=== PATIENT | female | born 1980 | race Caucasian/White ===

== ENCOUNTER → 2023-09-03 07:46 | Outpatient (REF) | payer OTHER, SELFPAY | LOC: HWRAD 07:46 | PROVIDERS: ATTENDING PHYSICIAN Obstetrics & Gynecology Gynecology; FAMILY PHYSICIAN Family Medicine | DX: N83.291 Other ovarian cyst, right side (principal) | CPT/HCPCS: 76830; 76856 ==

== ENCOUNTER 2024-03-18 18:15 | Emergency (ER) | payer OTHER, SELFPAY ==
[2024-03-18 18:29] VITALS: BP 142/87
--- NOTE | 2024-03-18 19:09 | ED.SKININJ ---
HPI-Injury
General
Chief Complaint: Skin Surface Trauma
Source: patient
Exam Limitations: none
Time Seen by Provider: 03/18/24 18:34
Nursing documentation reviewed up to this point in time: agreed with
History of Present Illness-Injury
Is this injury a work related problem?: No
Is pt an associate of [facility]/[place]?: No
Initial Injury comments:
Accidentally cut self with knife. Sustained lac to left index finger. Injury occurred just BEHAVIORAL HEALTH TECH
Past History
Past History
ED Past Medical History: None
Review of Systems
Review of Systems
Allergies reviewed?: Yes
All Other Systems: ROS reviewed and negative except as documented in HPI and ROS
Constitutional: Reports no symptoms
Musculoskeletal: Reports no symptoms
Skin: Reports other (laceration to left index finger)
Neurological: Reports no symptoms
Psychiatric: Reports no symptoms
Skin Exam
Laceration
Left Second Finger:
Length in cm: 1
Orientation: horizontal
Type of Laceration: simple
Any active bleeding?: no active bleeding
Distal skin color and temperature: normal-warm & good color
Normal distal neurovascular exam: Yes
Range of motion: full
Phy Exam
General Physical Exam
General Presentation: well appearing and no apparent distress
General age: appears stated age
General Skin: warm and dry
General Habitus: normal
General Mental: alert
Musculoskeletal Exam
Musculoskeletal Exam: full ROM and neuro vasc intact
Skin Exam
Skin Exam: normal color, warm/dry and no rash
Psychiatric Exam
Psychiatric Exam: normal mood/affect
Course
Orders/Labs/Results
Orders:
Orders
03/18/24 19:08
Tetanus/Diphth/Acelpertussis [Adacel] 0.5 ml IM .ONCE ONE
Vital Signs
Initial and Last Documented VS:
Initial Vital Signs
Temp Pulse Resp BP Pulse Ox
98.7 F 95 16 142/87 97
03/18/24 18:29 03/18/24 18:29 03/18/24 18:29 03/18/24 18:29 03/18/24 18:29
Last Documented Vital Signs
Temp Pulse Resp BP Pulse Ox
98.7 F 95 16 142/87 97
03/18/24 18:29 03/18/24 18:29 03/18/24 18:29 03/18/24 18:29 03/18/24 18:29
Procedures
Laceration Closure
Left Second Finger:
Status of Wound: clean
Description of Wound Edges: sharp
Preparation: cleaned with saline and cleaned with Betadine
Revision/Debridement: routine- no revision
Wound exploration: no tendon involvement
Type of Closure: Dermabond-skin glue
*Critical Care Note
Total Time (30-74mins, 75-104mins- exclusive of procedures): Not Applicable
ED Attending Note
-
Portions of this chart may have been created with voice recognition software.� Occasional wrong word or��sound alike� substitutions may have occurred due to the inherent limitations of voice recognition software.
Discharge Plan
Departure
Patient Disposition: Home (Routine Discharge)
Date of Disposition: 03/18/24
Time of Disposition: 19:12
Patient with high blood pressure during this ER visit?: No
Condition: Good
Covid-19: Not Applicable
Discharge Problem:
Finger laceration
Instructions: Laceration Repair With Glue (DC)
Referrals:
Orin Kruger, [Family Provider] -
Interventions
Interventions:
*Risk Screen - Suicide Last Done: 03/18/24 18:29
*General Assessment Last Done: 03/18/24 18:29
*Neglect/Abuse Screening Last Done: 03/18/24 18:29
*ED COVID-19 Vaccine History Last Done: 03/18/24 18:29
Discharge Date and Time
Print Language: GREEK
[2024-03-18] MEDS: ADACEL 0.5 ML IM (19:20)
== END 2024-03-18 19:25 | disposition home or self-care (01) ==
LOC: EMR 18:15
PROVIDERS: EMERGENCY PHYSICIAN Emergency Medicine; FAMILY PHYSICIAN Family Medicine
DX: S61.211A Laceration without foreign body of left index finger without damage to nail, initial encounter (principal); W26.0XXA Contact with knife, initial encounter; Z23 Encounter for immunization
CPT/HCPCS: 99282; 12001; 90471; 90715

== ENCOUNTER 2024-03-20 08:57 | Emergency (ER) | payer OTHER, SELFPAY ==
[2024-03-20 09:04] VITALS: BP 133/94
--- NOTE | 2024-03-20 09:36 | ED.GENMED ---
History of Present Illness
General
Chief Complaint: Wound Check/Suture Removal
Time Seen by Provider: 03/20/24 09:18
History of Present Illness
History of Present Illness:
43-year-old female department for a wound check. She had a small laceration to the left index finger sustained 2 days ago, was treated in this emergency department with Steri-Strips and glue. She is concerned because a portion of the Steri-Strip
seems to be falling off and there is slight drainage from the wound. No fever
Past History
Past History
ED Past Medical History: None
Review of Systems
Review of Systems
Allergies reviewed?: Yes
All Other Systems: ROS reviewed and negative except as documented in HPI and ROS
Phy Exam
Physical Exam
Physical Exam:
GEN: Well appearing, NAD, WDWN
HEENT: Oral mucosa moist, no scleral icterus
Cardiac: Regular rate
Lung: No respiratory distress, no tachypnea
MSK: No gross deformity or injuries
Skin: Good color, no pallor or jaundice. Steri-Strips intact, minor avulsing of 2 of the Steri-Strips with exposed well-approximated wound
Neuro: AO x3, moves all extremities freely
Psych: Calm, cooperative
Course
Vital Signs
Initial and Last Documented VS:
Initial Vital Signs
Temp Pulse Resp BP Pulse Ox
98.0 F 82 16 133/94 98
03/20/24 09:04 03/20/24 09:04 03/20/24 09:04 03/20/24 09:04 03/20/24 09:04
Last Documented Vital Signs
Temp Pulse Resp BP Pulse Ox
98.0 F 82 16 133/94 98
03/20/24 09:04 03/20/24 09:04 03/20/24 09:04 03/20/24 09:04 03/20/24 09:04
MDM/Problems Addressed
MDM/Problems Addressed:
Portion Steri-Strips will cut back in the wound was irrigated and redressed. Remainder of Steri-Strips are intact, no changes to supportive care
*Critical Care Note
Total Time (30-74mins, 75-104mins- exclusive of procedures): Not Applicable
ED Attending Note
-
Portions of this chart may have been created with voice recognition software.� Occasional wrong word or��sound alike� substitutions may have occurred due to the inherent limitations of voice recognition software.
Discharge Plan
Departure
Patient Disposition: Home (Routine Discharge)
Date of Disposition: 03/20/24
Time of Disposition: 09:36
Patient with high blood pressure during this ER visit?: No
Discharge Problem:
Encounter for post-traumatic wound check
Instructions: Wound Care (DC)
Referrals:
Orin Kruger, DO [Family Provider] -
Activity Restrictions/Additional Instructions:
Wash the wound with soap and water daily
If the strips begin to gradually peel off, you may cut back the exposed portion. Do not forcefully remove them
You may wash the hand daily and re-bandage
Monitor for redness and swelling
Interventions
Interventions:
*Nursing Disposition Last Done: 03/20/24 09:42
Discharge Date and Time
Discharge Date/Time: 03/20/24 09:42
Print Language: LITHUANIAN
== END 2024-03-20 09:42 | disposition home or self-care (01) ==
LOC: EMR 08:57
PROVIDERS: EMERGENCY PHYSICIAN Emergency Medicine; FAMILY PHYSICIAN Family Medicine
DX: Z48.01 Encounter for change or removal of surgical wound dressing (principal)
CPT/HCPCS: 99281

== ENCOUNTER → 2024-11-04 13:27 | Outpatient (REF) | payer OTHER, SELFPAY | LOC: HWRAD 13:27 | PROVIDERS: ATTENDING PHYSICIAN Obstetrics & Gynecology Gynecology; FAMILY PHYSICIAN Family Medicine | DX: N83.291 Other ovarian cyst, right side (principal) | CPT/HCPCS: 76830; 76856 ==

== ENCOUNTER → 2025-01-25 07:49 | Outpatient (REF) | payer OTHER, SELFPAY | LOC: HWRAD 07:49 | PROVIDERS: ATTENDING PHYSICIAN Obstetrics & Gynecology; FAMILY PHYSICIAN Family Medicine | DX: N80.129 Deep endometriosis of ovary, unspecified ovary (principal) | CPT/HCPCS: 76830; 76856 ==